=== PATIENT | male | born 1965 | race African-American/Black ===

== ENCOUNTER 2025-09-20 12:05 | Inpatient (IN) ==
--- NOTE | 2025-09-20 12:19 | DR.ABDMALE ---
HPI Time seen Time Seen by Provider: 09/20/25 12:16 Complaint Chief Complaint Doctors Comments: 59-year-old male presents to ED from [facility] via police transport for abdominal pain possible hernia. Noted today on toilet with acute pain ROS Review of Systems Constitutional: No Symptoms Reported Eyes: No Symptoms Reported ENTM: No Symptoms Reported Respiratoy: No Symptoms Reported Cardiovascular: No Symptoms Reported Gastrointestinal/Abdominal: See HPI and Abdominal Pain Genitourinary: No Symptoms Reported Neurological: No Symptoms Reported Musculoskeletal: No Symptoms Reported Integumentary: No Symptoms Reported Hematologic/Lymphatic: No Symptoms Reported Endocrine: No Symptoms Reported Psychiatric: No Symptoms Reported All Other Systems: Reviewed and Negative PE Vital Signs Vital Signs: Temp Pulse Resp BP Pulse Ox O2 Del Method 09/20/25 12:14 97.3 F L 65 20 183/89 99 Room Air General Limitations: No Limitations General Appearance: Alert and In No Apparent Distress Head Head Exam: Normal Inspection Eyes Eye exam: Normal Appearance ENT ENT Exam: Normal Exam Neck Neck Exam: Normal Inspection Chest Chest Inspection: Normal Inspection Respiratory Respiratory Exam: Normal Lung Sounds Bilat Cardiovascular Cardiovascular Exam: Regular Rate and Normal Rhythm Abdominal Exam Abdominal Exam: Normal Bowel Sounds (Positive inguinal hernia with pain), Soft and Tenderness (Bilateral lower abdominal pain); negative Guarding Rectal Rectal Exam: Deferred Back Back Exam: Normal Inspection Extremeties Extremities Exam: Normal Inspection Exam: Male: Deferred Neurologic Neurological Exam: Alert and Oriented X3 Psychiatric Psychiatric Exam: Normal Affect and Normal Mood Skin Skin Exam: Warm, Dry, Intact and Normal Color COURSE Treatment Treatment: Dr. Reinaldo Duque in ED evaluating patient agrees probable incarcerated hernia which will require surgery patient is currently n.p.o. he is requested preoperative lab work including preoperative EKG Preoperative EKG shows normal sinus rhythm 71 with left ventricular hypertrophy marked ST elevation in V1-V4 leads consulted cardiology to over read troponin ordered patient denies any chest pain or shortness of breath Dr. De La Rosa reviewed EKG no old EKGs are available for comparison feels patient needs to be admitted for cardiac clearance prior to surgery Discussed with Dr. Glass will admit but wishes to have troponin level prior to admission Troponin within normal limits 6.[address] Glass consult for Dr. Garber and Dr. De La Rosa cardiac echo ordered [facility] Labs Reviewed 09/20/25 12:35 09/20/25 12:35 Laboratory: WBC 8.7 X10^3/uL (3.6-10.0) 09/20/25 12:35 RBC 5.30 X10^6/uL (4.7-6.0) 09/20/25 12:35 Hgb 13.8 g/dL (13.5-18.0) 09/20/25 12:35 Hct 41.5 % (42.0-54.0) L 09/20/25 12:35 MCV 78.3 fL (80.0-100.0) L 09/20/25 12:35 MCH 25.9 pg (27.0-34.0) L 09/20/25 12:35 MCHC 33.1 g/dL (33.0-35.0) 09/20/25 12:35 RDW 13.8 % (11.6-16.5) 09/20/25 12:35 Plt Count 185 X10^3/uL (150.0-450.0) 09/20/25 12:35 MPV 9.0 fL (7.4-11.0) 09/20/25 12:35 Neut % (Auto) 87.7 % (42.0-75.0) H 09/20/25 12:35 Lymph % (Auto) 8.7 % (21.0-51.0) L 09/20/25 12:35 Elk % (Auto) 2.6 % (0.0-13.0) 09/20/25 12:35 Eos % (Auto) 0.6 % (0.9-2.9) L 09/20/25 12:35 Baso % (Auto) 0.4 % (0.2-1.0) 09/20/25 12:35 Neut # (Auto) 7.6 x10^3/uL (2.2-4.8) H 09/20/25 12:35 Lymph # (Auto) 0.8 X10^3/uL (1.3-2.9) L 09/20/25 12:35 Elk # (Auto) 0.2 x10^3/uL (0.3-0.8) L 09/20/25 12:35 Eos # (Auto) 0.1 x10^3/uL (0.0-0.2) 09/20/25 12:35 Baso # (Auto) 0.0 X10^3/uL (0.0-0.1) 09/20/25 12:35 Absolute Nucleated RBC 0.1 /100WBC 09/20/25 12:35 Sodium 139 mmol/L (136-145) 09/20/25 12:35 Corrected Sodium 140 mmol/L (136-145) 09/20/25 12:35 Potassium 3.8 mmol/L (3.5-5.1) 09/20/25 12:35 Chloride 103 mmol/L (98-107) 09/20/25 12:35 Carbon Dioxide 25.2 mmol/L (21-32) 09/20/25 12:35 BUN 12 mg/dL (7-18) 09/20/25 12:35 Creatinine 1.35 mg/dL (0.70-1.30) H 09/20/25 12:35 Est GFR (MDRD) Af Amer > 60 (>60) 09/20/25 12:35 Est GFR (MDRD) Non-Af 57 (>60) L 09/20/25 12:35 Glucose 128 mg/dL (65-99) H 09/20/25 12:35 Calcium 9.1 mg/dL (8.5-10.1) 09/20/25 12:35 Corrected Calcium TNP 09/20/25 12:35 Total Bilirubin 0.30 mg/dL (0.2-1.0) 09/20/25 12:35 AST 29 Units/L (15-37) 09/20/25 12:35 ALT 33 Units/L (12-78) 09/20/25 12:35 Alkaline Phosphatase 65 Units/L (46-116) 09/20/25 12:35 Troponin I High Sens 6.8 ng/L (4.0-60.0) 09/20/25 12:35 Total Protein 8.4 g/dL (6.4-8.2) H 09/20/25 12:35 Albumin 4.1 g/dL (3.4-5.0) 09/20/25 12:35 Globulin 4.3 g/dL (2.5-4.5) 09/20/25 12:35 Albumin/Globulin Ratio 1.0 Ratio (1.1-2.1) L 09/20/25 12:35 Amylase 76 Units/L (25-115) 09/20/25 12:35 Lipase 27 Units/L (16-77) 09/20/25 12:35 Specimen Type Clean catch urine 09/20/25 12:43 Urine Color Yellow (YELLOW) 09/20/25 12:43 Urine Appearance Clear (CLEAR) 09/20/25 12:43 Urine pH 6.0 (5.0 - 8.0) 09/20/25 12:43 Ur Specific [place] 1.020 (1.000-1.030) 09/20/25 12:43 Urine Protein 2+ (NEGATIVE) 09/20/25 12:43 Urine Glucose (UA) 1+ (NEGATIVE) 09/20/25 12:43 Urine Ketones Negative (NEGATIVE) 09/20/25 12:43 Urine Blood Negative (NEGATIVE) 09/20/25 12:43 Urine Nitrite Negative (NEGATIVE) 09/20/25 12:43 Urine Bilirubin Negative (NEGATIVE) 09/20/25 12:43 Urine Urobilinogen Normal (NORMAL) 09/20/25 12:43 Ur Leukocyte Esterase Negative (NEGATIVE) 09/20/25 12:43 Urine RBC 0-2 /HPF (0-3) 09/20/25 12:43 Urine WBC 0-2 /HPF (0-5) 09/20/25 12:43 Ur Squamous Epith Cells Rare /HPF (NEGATIVE) 09/20/25 12:43 Urine Bacteria Trace /HPF (NEGATIVE) 09/20/25 12:43 Urine Mucus Moderate /HPF (NEGATIVE) 09/20/25 12:43 Ur Culture Indicated? No/not indicated 09/20/25 12:43 Urine Opiates Screen Negative (NEG=<300) 09/20/25 12:43 Urine Methadone Screen Negative (NEG=<300) 09/20/25 12:43 Ur Barbiturates Screen Negative (NEG=<200) 09/20/25 12:43 Ur Phencyclidine Scrn Negative (NEG=<25) 09/20/25 12:43 Ur Amphetamines Screen Negative (NEG=<1000) 09/20/25 12:43 U Benzodiazepines Scrn Negative (NEG=<200) 09/20/25 12:43 Urine Cocaine Screen Negative (NEG=<300) 09/20/25 12:43 U Marijuana (THC) Screen Negative (NEG=<50) 09/20/25 12:43 Opioid Opioid Risk Tool Total: 0 Total Score Risk Category: Low Risk Copyright: Byron SUAREZ predicting aberrant behaviors Discharge Plan Diagnosis Discharge Problem: Inguinal hernia, ST elevation, LVH (left ventricular hypertrophy) Discharge Plan Patient Disposition: 09 ADMITTED INPATIENT Condition: Stable Prescriptions: No Action atorvastatin 80 mg Tablet 80 mg PO DAILY amlodipine 10 mg Tablet 10 mg PO DAILY aspirin 81 mg Tablet 81 mg PO DAILY fenofibrate nanocrystallized 145 mg Tablet 145 mg PO DAILY Health Concerns: Post Hospitalization: new medications and changes needed to prevent readmission or further decline. Pt educated and given instructions on all concerns. Plan of Treatment: Continue with present treatment and follow up plan. Pt is to keep follow up appointment as instructed and take medications as ordered. Follow ups/Referrals Follow ups/Referrals: [facility]DM[facility] [Primary Care Provider] - 3 days Instructions Print Language: CROATIAN
[2025-09-20 12:41] LABS: MEAN PLATELET VOLUME 9.0 fL (7.4-11.0); RED CELL DISTRIBUTION WIDTH 13.8 % (11.6-16.5)
--- NOTE | 2025-09-20 12:42 | EKG ---
Test Reason : preop Blood Pressure : */* mmHG Vent. Rate : 66 BPM Atrial Rate : 66 BPM P-R Int : 156 ms QRS Dur : 92 ms QT Int : 436 ms P-R-T Axes : 68 33 209 degrees QTc Int : 457 ms Normal sinus rhythm Possible Left atrial enlargement Minimal voltage criteria for LVH, may be normal variant ( Sokolow-Villafuerte ) Abnormal ECG No previous ECGs available Confirmed by Abner De La Rosa MD ([id number]) on 09/20/2025 2:14:51 PM Referred By: Confirmed By: Abner De La Rosa MD
[2025-09-20 12:50] LABS: BLOOD/HEMOGLOBIN,URINE NEGATIVE (NEGATIVE); LEUKOCYTE ESTERASE ,URINE NEGATIVE (NEGATIVE); NITRITES,URINE NEGATIVE (NEGATIVE)
--- NOTE | 2025-09-20 12:54 | RAD ---
EXAM: CHEST, 1 VIEW HISTORY: preop HERNIA REPAIR; COMPARISON: No relevant prior studies were available for comparison at the time of interpretation. TECHNIQUE: CHEST, 1 VIEW FINDINGS: Chest: Lines and tubes: None Mediastinum: Cardiac and mediastinal shadow is within normal limits for size and contour. Pulmonary vessels: No pulmonary vascular congestion. Lung pritchett: No suspicious airspace opacity. Pleura: No effusion. No pneumothorax. Bones and soft tissues: No acute osseous or soft tissue abnormality. IMPRESSION: 1. No acute cardiopulmonary abnormality THIS IS AN ELECTRONICALLY VERIFIED FINAL REPORT 09/20/2025 12:50 PM - Electronically signed by Heber Don MD
[2025-09-20 12:56] LABS: COR NA(FOR HYPERGLY) 140 mmol/L (136-145); CREATININE 1.35 mg/dL (0.70-1.30); eGFR NON BLACK RACES 57 (>60)
--- NOTE | 2025-09-20 13:07 | EKG ---
Test Reason : pre-op clearance Blood Pressure : */* mmHG Vent. Rate : 71 BPM Atrial Rate : 71 BPM P-R Int : 166 ms QRS Dur : 94 ms QT Int : 428 ms P-R-T Axes : 61 15 178 degrees QTc Int : 465 ms Normal sinus rhythm Possible Left atrial enlargement Left ventricular hypertrophy ( R in aVL , Sokolow-Villafuerte , [place] product ) Prolonged QT Abnormal ECG When compared with ECG of 20-SEP-2025 12:40, (Unconfirmed) T wave inversion less evident in Inferior leads Confirmed by Abner De La Rosa MD ([id number]) on 09/20/2025 2:14:44 PM Referred By: Confirmed By: Abner De La Rosa MD
[2025-09-20 13:13] LABS: APPEARANCE,URINE CLEAR (CLEAR); SQUAMOUS EPITHELIAL CELL,UR RARE /HPF (NEGATIVE)
[2025-09-20] MEDS: BACTROBAN TOPICAL OINT ONE (13:20)
[2025-09-20] MEDS: MARCAINE 0.5% ONE (13:20)
[2025-09-20] MEDS: POLYMYXIN B SULFATE ONE (13:21)
[2025-09-20] MEDS ORDERED: XYLOCAINE 2 % (PLAIN) ONE (13:30)
[2025-09-20] MEDS ORDERED: NS 250 ML IV IV ONE (13:30)
[2025-09-20] MEDS ORDERED: PRECEDEX INJ VIAL ONE (13:30)
[2025-09-20] MEDS ORDERED: DOBUTAMINE 1000 MG/250 ML IV ONE (13:30)
[2025-09-20] MEDS ORDERED: ULTANE GAS IN ONE (13:30)
[2025-09-20] MEDS ORDERED: D5W IV ONE (13:30)
[2025-09-20] MEDS ORDERED: TYLENOL 325 MG TAB PO PRN (14:27)
[2025-09-20] MEDS ORDERED: CONSULT PHARMACY - POTASSIUM & MAGNESIUM XX SCH (14:27)
[2025-09-20] MEDS ORDERED: NORCO 5/325 MG TAB PO PRN (14:27)
[2025-09-20] MEDS: NS 250 ML IV 250 ML IV ONE (15:05)
[2025-09-20] MEDS: K-RIDER 10 MEQ/100 ML WATER 10 MEQ/100 ML BAG IV SCH (15:05)
--- NOTE | 2025-09-20 15:33 | DR.CONSULT ---
CONSULT Consultation for Day of: Date: 09/20/25 Chief Complaint Chief Complaint: preop hernia- high bp- abnormal ekg Allergies Allergies Allergy/AdvReac Type Severity Reaction Status Date / Time No Known Allergies Allergy Verified 09/20/25 12:07 History of Present Illness History of Present Illness: 59 yo male- came from assisted due to abd pain- has incarcerated hernia- needs surgery- has htn/hlp- smoked years ago- activ ein assisted without sign cv sx but ekg: marked st changes of lvh/ plus minus ischemia- bp 180 but no meds now- trop negative Past Medical History Past Medical History: Depression, Dyslipidemia and Hypertension Family History Family Medical History: Hypertension Social History Does patient currently use any type of tobacco product: No Have you used tobacco products in the last 12 months: No Type of Tobacco Use: None Does any household member use tobacco: No Alcohol Use: None Medications Home Medications: No Known Allergies Allergy (Verified 09/20/25 12:07) CONTINUE taking the following medications amlodipine 10 mg tablet 10 mg PO DAILY 09/20/25 [History] aspirin 81 mg tablet 81 mg PO DAILY 09/20/25 [History] atorvastatin 80 mg tablet 80 mg PO DAILY 09/20/25 [History] fenofibrate nanocrystallized 145 mg tablet 145 mg PO DAILY 09/20/25 [History] Physical Exam Vital Signs: Vital Signs Temperature 97.3 F Pulse Rate [Left Radial] 73 Pulse Rate 65 Respiratory Rate 20 Respiratory Rate 20 Blood Pressure 183/89 O2 Sat by Pulse Oximetry 100 O2 Sat by Pulse Oximetry 99 alert ox3 nad clear lungs rrr s4 no bruits no edema cxr nad labs hct 41 cr 1.35 trop negative ekg: nsr lvh marked st/t abnormality of lvh/ischemia Plan (1) Inguinal hernia: Status: Acute (2) Preop cardiovascular exam: Status: Acute (3) Hypertension: Status: Acute Plan: resume po bp meds and iv prn med (4) Hyperlipidemia: Status: Acute (5) Abnormal EKG: Status: Acute Narrative Support Text: lvh/ischemia- due to hernia no walking test Plan: dobutamine SE in am b4 surgery
[2025-09-20] MEDS ORDERED: APRESOLINE INJ 20 MG VIAL IVP PRN (15:34)
[2025-09-20] MEDS: NORVASC TAB 10 MG PO ONE (15:35)
[2025-09-20] MEDS: DILAUDID INJ IVP PRN (15:36)
[2025-09-20 17:47] VITALS: BMI 28.5
[2025-09-20] MEDS: DILAUDID INJ ONE (18:10)
[2025-09-20] MEDS: HIBICLENS WASH EXT ONE (20:48)
[2025-09-21 05:53] LABS: MEAN PLATELET VOLUME 10.4 fL (7.4-11.0); RED CELL DISTRIBUTION WIDTH 14.1 % (11.6-16.5)
[2025-09-21 06:04] LABS: COR NA(FOR HYPERGLY) 139 mmol/L (136-145); CREATININE 1.23 mg/dL (0.70-1.30); eGFR NON BLACK RACES > 60 (>60)
[2025-09-21 06:18] LABS: PLATELET MORPHOLOGY COMMENT NORMAL (NORMAL)
[2025-09-21] MEDS: NORVASC TAB 10 MG PO SCH (08:16)
[2025-09-21] MEDS: TOPROL XL PO ONE ×2 (08:17→10:23)
--- NOTE | 2025-09-21 08:21 | NOTE.SOAP ---
[place] Note Note for Day of Date of Exam: 09/21/25 Subjective Data Subjective Data: no cv c/o Objective Data Objective Data: 140-180p70 STRESS ECHO: asym LVH 1.7 sept/1.3 post wall- no lot obstruction at rest but 36 mm hg w valsalva- good LV/no ischemia to hr 130 Assessment Assessment: preop- abnormal ekg because of mild HOCM/no gradient at rest but 36 w valsalva Plan Plan: ok for surgery- in light of above findings: keep fluid status up/keep hr 70s-will add low dose bb to ccb
[2025-09-21] MEDS: PEPCID 20 MG VIAL ONE (10:12)
[2025-09-21] MEDS: ULTANE GAS IN ONE (10:12)
[2025-09-21] MEDS: DIPRIVAN VIAL 20 ML ONE (10:20)
[2025-09-21] MEDS: REGLAN INJ 10 MG VIAL ONE (10:20)
[2025-09-21] MEDS: MARCAINE 0.5% ONE (10:20)
[2025-09-21] MEDS: BACTROBAN TOPICAL OINT ONE (10:20)
[2025-09-21] MEDS: ZOFRAN INJ 4 MG VIAL ONE (10:20)
[2025-09-21] MEDS: POLYMYXIN B SULFATE ONE (10:21)
[2025-09-21] MEDS: VERSED ONE (10:22)
[2025-09-21] MEDS: FENTANYL VIAL INJ 100 mcg ONE (10:22)
[2025-09-21] MEDS: DECADRON INJ ONE (10:24)
[2025-09-21] MEDS: MAALOX or MYLANTA PO PRN (15:18)
[2025-09-22 06:14] LABS: MEAN PLATELET VOLUME 9.8 fL (7.4-11.0); RED CELL DISTRIBUTION WIDTH 13.9 % (11.6-16.5)
[2025-09-22 06:34] LABS: COR NA(FOR HYPERGLY) 140 mmol/L (136-145); CREATININE 1.74 mg/dL (0.70-1.30); eGFR NON BLACK RACES 43 (>60)
[2025-09-22 06:51] LABS: PLATELET MORPHOLOGY COMMENT NORMAL (NORMAL)
[2025-09-22] MEDS: DIPRIVAN VIAL 0 ML ONE (07:01)
[2025-09-22] MEDS: ANCEF VIAL 1 GRAM ONE (07:25)
[2025-09-22] MEDS: VERSED IVP PRN (07:28)
[2025-09-22] MEDS: ZOFRAN INJ 4 MG VIAL IVP PRN (07:28)
[2025-09-22] MEDS: LR 1,000 ML IV 700 ML IV PRN (07:28)
[2025-09-22] MEDS: PEPCID 20 MG VIAL IVP PRN (07:28)
[2025-09-22] MEDS: REGLAN INJ 10 MG VIAL IVP PRN (07:28)
[2025-09-22] MEDS: ANCEF VIAL 1 GRAM IV PRN (07:28)
[2025-09-22] MEDS: LR 1,000 ML IV 1,000 ML IV ONE (07:31)
[2025-09-22] MEDS: NS 100 ML IV 100 ML ONE (07:33)
[2025-09-22] MEDS: ZEMURON 100 MG VIAL IVP PRN (07:36)
[2025-09-22] MEDS ORDERED: XYLOCAINE 2 % (PLAIN) PRN (07:36)
[2025-09-22] MEDS: DIPRIVAN VIAL 160 ML IVP PRN (07:36)
[2025-09-22] MEDS: OFIRMEV IV 1000 MG VIAL 1,000 MG/100 ML VIAL IV ONE (07:43)
[2025-09-22] MEDS: DECADRON INJ IVP PRN (07:45)
[2025-09-22] MEDS ORDERED: BENADRYL INJ 50 MG VIAL IVP PRN (07:48)
[2025-09-22] MEDS ORDERED: REGLAN INJ 10 MG VIAL IVP PRN (07:48)
[2025-09-22] MEDS ORDERED: BARHEMSYS INJ IVP PRN (07:48)
[2025-09-22] MEDS: BRIDION ONE (07:48)
[2025-09-22] MEDS ORDERED: ZOFRAN INJ 4 MG VIAL IVP PRN (07:48)
[2025-09-22] MEDS ORDERED: DILAUDID INJ IVP PRN (07:48)
[2025-09-22] MEDS: OFIRMEV IV 1000 MG VIAL 1,000 MG/100 ML VIAL IV PRN (07:51)
[2025-09-22] MEDS: MARCAINE 0.5% ONE (07:52)
[2025-09-22] MEDS: BACTROBAN TOPICAL OINT ONE (07:52)
[2025-09-22] MEDS: POLYMYXIN B SULFATE ONE (07:52)
[2025-09-22] MEDS: EPHEDRINE SULFATE INJ ONE (08:03)
[2025-09-22] MEDS: FENTANYL VIAL INJ 100 mcg IVP PRN (08:16)
[2025-09-22] MEDS: EPHEDRINE SULFATE INJ IVP PRN (08:24)
[2025-09-22] MEDS: NEO-SYNEPHRINE INJ IVP PRN (08:38)
[2025-09-22] MEDS: BRIDION IVP PRN (09:08)
[2025-09-22] MEDS ORDERED: NS 1,000 ML IV 1,000 ML IV ONE (09:24)
[2025-09-22] MEDS: TOPROL XL PO SCH (11:11)
[2025-09-22] MEDS: LR 1,000 ML IV 1,000 ML IV SCH (11:15)
[2025-09-22] MEDS ORDERED: ANCEF VIAL 1 GRAM IM SCH (14:00)
[2025-09-22] MEDS: ANCEF VIAL 1 GRAM 1 G in NS 100 ML IV 100 ML IV SCH (14:34)
[2025-09-22] MEDS: PERCOCET TAB 5/325 MG PO PRN (20:06)
[2025-09-22] MEDS: ULTRAM PO PRN (22:14)
[2025-09-23 05:52] LABS: MEAN PLATELET VOLUME 9.8 fL (7.4-11.0); RED CELL DISTRIBUTION WIDTH 13.9 % (11.6-16.5)
[2025-09-23 05:54] LABS: PLATELET MORPHOLOGY COMMENT NORMAL (NORMAL)
[2025-09-23 05:56] LABS: COR CA(FOR HYPOALB) 9.4 mg/dL (8.5-10.1); CREATININE 1.21 mg/dL (0.70-1.30); eGFR NON BLACK RACES > 60 (>60)
[2025-09-23] MEDS ORDERED: CONSULT PHARMACY - POTASSIUM & MAGNESIUM XX SCH (07:00)
--- NOTE | 2025-09-23 08:07 | DR.PROGNOT ---
HOSPITAL PROGRESS NOTE Progress Note for Day of: Progress Note Date: 09/23/25 Chief Complaint Chief Complaint: This 59-year-old male Status post repair of incarcerated right inguinal hernia. Patient is doing very well, Complaining of some incisional pain, No further abdominal pain, no nausea or vomiting. Patient is tolerating diet well. Abdomen is soft and flat with good bowel sounds. Lab work is unremarkable. Patient could be discharged and will follow in the office in 2 weeks. He was given prescription for Percocet 5 every 4 hours as needed Past Medical Family Social History Allergies: Allergies No Known Allergies Allergy (Verified 09/20/25 12:07) Vital Signs Vital Signs: Vital Signs Temperature 98.1 F Pulse Rate [Left Radial] 72 Respiratory Rate 20 Respiratory Rate 20 Respiratory Rate 18 Respiratory Rate 20 Respiratory Rate 20 Blood Pressure [Right Arm] 140/72 O2 Sat by Pulse Oximetry 95 Physical Exam Oriented: Normal Eyes: Normal Ear: Normal Nose: Normal Throat: Normal Respiratory: Normal Cardiovascular: Normal GI:Auscultation: Normal GI:Palpation: Normal GI: Tenderness: Normal Mood Description: Appropriate Speech Pattern: Clear and Appropriate Laboratory and Diagnostics 09/23/25 05:31 09/23/25 05:31 Labs: 09/22/25 08:03 Groin Wound Gram Stain - Final Laboratory WBC 8.4 X10^3/uL (3.6-10.0) 09/23/25 05:31 RBC 4.98 X10^6/uL (4.7-6.0) 09/23/25 05:31 Hgb 13.0 g/dL (13.5-18.0) L D 09/23/25 05:31 Hct 38.6 % (42.0-54.0) L 09/23/25 05:31 MCV 77.5 fL (80.0-100.0) L 09/23/25 05:31 MCH 26.2 pg (27.0-34.0) L 09/23/25 05:31 MCHC 33.8 g/dL (33.0-35.0) 09/23/25 05:31 RDW 13.9 % (11.6-16.5) 09/23/25 05:31 Plt Count 175 X10^3/uL (150.0-450.0) 09/23/25 05:31 Plt Count Comment Adequate (ADEQUATE) 09/23/25 05:31 MPV 9.8 fL (7.4-11.0) 09/23/25 05:31 Neut % (Auto) 72.1 % (42.0-75.0) 09/23/25 05:31 Lymph % (Auto) 13.1 % (21.0-51.0) L 09/23/25 05:31 Martin % (Auto) 14.4 % (0.0-13.0) H 09/23/25 05:31 Eos % (Auto) 0.1 % (0.9-2.9) L 09/23/25 05:31 Baso % (Auto) 0.3 % (0.2-1.0) 09/23/25 05:31 Neut # (Auto) 6.0 x10^3/uL (2.2-4.8) H 09/23/25 05:31 Lymph # (Auto) 1.1 X10^3/uL (1.3-2.9) L 09/23/25 05:31 Martin # (Auto) 1.2 x10^3/uL (0.3-0.8) H 09/23/25 05:31 Eos # (Auto) 0.0 x10^3/uL (0.0-0.2) 09/23/25 05:31 Baso # (Auto) 0.0 X10^3/uL (0.0-0.1) 09/23/25 05:31 Absolute Nucleated RBC 0.3 /100WBC 09/23/25 05:31 Plt Morphology Comment Normal (NORMAL) 09/23/25 05:31 RBC Morphology Normal (NORMAL) 09/23/25 05:31 Sodium 139 mmol/L (136-145) 09/23/25 05:31 Corrected Sodium TNP 09/23/25 05:31 Potassium 3.7 mmol/L (3.5-5.1) 09/23/25 05:31 Chloride 104 mmol/L (98-107) 09/23/25 05:31 Carbon Dioxide 28.1 mmol/L (21-32) 09/23/25 05:31 BUN 20 mg/dL (7-18) H 09/23/25 05:31 Creatinine 1.21 mg/dL (0.70-1.30) 09/23/25 05:31 Est GFR (MDRD) Af Amer > 60 (>60) 09/23/25 05:31 Est GFR (MDRD) Non-Af > 60 (>60) 09/23/25 05:31 Glucose 107 mg/dL (65-99) H 09/23/25 05:31 Calcium 8.6 mg/dL (8.5-10.1) 09/23/25 05:31 Corrected Calcium 9.4 mg/dL (8.5-10.1) 09/23/25 05:31 Total Bilirubin 0.80 mg/dL (0.2-1.0) 09/23/25 05:31 AST 23 Units/L (15-37) 09/23/25 05:31 ALT 18 Units/L (12-78) 09/23/25 05:31 Alkaline Phosphatase 53 Units/L (46-116) 09/23/25 05:31 Troponin I High Sens 9.7 ng/L (4.0-60.0) 09/21/25 01:01 Total Protein 6.8 g/dL (6.4-8.2) 09/23/25 05:31 Albumin 3.0 g/dL (3.4-5.0) L 09/23/25 05:31 Globulin 3.8 g/dL (2.5-4.5) 09/23/25 05:31 Albumin/Globulin Ratio 0.8 Ratio (1.1-2.1) L 09/23/25 05:31 Amylase 76 Units/L (25-115) 09/20/25 12:35 Lipase 27 Units/L (16-77) 09/20/25 12:35 Specimen Type Clean catch urine 09/20/25 12:43 Urine Color Yellow (YELLOW) 09/20/25 12:43 Urine Appearance Clear (CLEAR) 09/20/25 12:43 Urine pH 6.0 (5.0 - 8.0) 09/20/25 12:43 Ur Specific [place] 1.020 (1.000-1.030) 09/20/25 12:43 Urine Protein 2+ (NEGATIVE) 09/20/25 12:43 Urine Glucose (UA) 1+ (NEGATIVE) 09/20/25 12:43 Urine Ketones Negative (NEGATIVE) 09/20/25 12:43 Urine Blood Negative (NEGATIVE) 09/20/25 12:43 Urine Nitrite Negative (NEGATIVE) 09/20/25 12:43 Urine Bilirubin Negative (NEGATIVE) 09/20/25 12:43 Urine Urobilinogen Normal (NORMAL) 09/20/25 12:43 Ur Leukocyte Esterase Negative (NEGATIVE) 09/20/25 12:43 Urine RBC 0-2 /HPF (0-3) 09/20/25 12:43 Urine WBC 0-2 /HPF (0-5) 09/20/25 12:43 Ur Squamous Epith Cells Rare /HPF (NEGATIVE) 09/20/25 12:43 Urine Bacteria Trace /HPF (NEGATIVE) 09/20/25 12:43 Urine Mucus Moderate /HPF (NEGATIVE) 09/20/25 12:43 Ur Culture Indicated? No/not indicated 09/20/25 12:43 Urine Opiates Screen Negative (NEG=<300) 09/20/25 12:43 Urine Methadone Screen Negative (NEG=<300) 09/20/25 12:43 Ur Barbiturates Screen Negative (NEG=<200) 09/20/25 12:43 Ur Phencyclidine Scrn Negative (NEG=<25) 09/20/25 12:43 Ur Amphetamines Screen Negative (NEG=<1000) 09/20/25 12:43 U Benzodiazepines Scrn Negative (NEG=<200) 09/20/25 12:43 Urine Cocaine Screen Negative (NEG=<300) 09/20/25 12:43 U Marijuana (THC) Screen Negative (NEG=<50) 09/20/25 12:43 Assessment and Plan 1: Status post repair of incarcerated right inguinal hernia Patient could be discharged and will follow-up in 2 weeks. Light activities. Regular diet. Follow-up in 2 weeks. Problem Patient Problems: Patient Problems LVH (left ventricular hypertrophy) (Acute) I51.7 ST elevation (Acute) R94.31 Inguinal hernia (Acute) K40.90
[2025-09-23 08:17] VITALS: BP 108/61; PULSE 61; RESP 16; TEMP 98.2; O2SAT 93
[2025-09-23] MEDS: K-DUR TAB 20 MEQ PO ONE (09:12)
[2025-09-23] MEDS: COLACE CAP 100 MG PO ONE (11:06)
[2025-09-23] MEDS: MILK OF MAGNESIA PO SCH (11:06)
== END 2025-09-23 11:35 | disposition home or self-care (01) | DRG 352 ==
LOC: ER 12:05 → MED/SURG 13:30
PROVIDERS: ADMIT Obstetrics & Gynecology Obstetrics; ATTEND Obstetrics & Gynecology Obstetrics
DX: F32.89 Other specified depressive episodes; Z79.899 Other long term (current) drug therapy; Z01.812 Encounter for preprocedural laboratory examination; I11.9 Hypertensive heart disease without heart failure; K40.30 Unilateral inguinal hernia, with obstruction, without gangrene, not specified as recurrent; R94.4 Abnormal results of kidney function studies; R94.31 Abnormal electrocardiogram [ECG] [EKG]; Z59.89 Other problems related to housing and economic circumstances; R11.2 Nausea with vomiting, unspecified; Z01.810 Encounter for preprocedural cardiovascular examination; E86.0 Dehydration; E78.5 Hyperlipidemia, unspecified; R10.84 Generalized abdominal pain